=== PATIENT | female | born 1960 | race Caucasian/White ===

== ENCOUNTER 2021-07-06 12:01 | Emergency (ER) | payer MEDICARE, SELFPAY ==
[2021-07-06 12:06] VITALS: BP 111/71; PULSE 85; RESP 18; TEMP 36.9; O2SAT 99
--- NOTE | 2021-07-06 12:22 | ED.URI ---
HPI - URI/Sore Throat General Chief Complaint: Upper Respiratory Infection Stated Complaint: Chest Congestion/Sore Throat Time Seen by Provider: 07/06/21 12:28 Source: patient, RN notes reviewed and old records reviewed Mode of arrival: ambulatory Limitations: no limitations History of Present Illness HPI Narrative: 61-year-old female who presents to [facility] with complaints of burning cough with sore throat and some shortness of breath for the past 2.5 weeks. Patient states that she had COVID test 2.5 weeks ago that was negative and her PCP ordered a Z-Pack which she completed but doesn't feel it resolved her symptoms. Patient reports that she took another COVID test 2 days ago that was also negative. Patient reports that cough is worse at night and she is not resting, coughing all night and is tired. Patient denies any fevers but states some chills.She states that she feels her equilibrium is off. Patient reports that she does have Albuterol inhaler at home but has not used. Patient has long history of tobacco use reports that she is smoking around 5 cigarettes daily. Related Data Home Medications Medication Instructions Recorded Confirmed Calcium 600 with Vitamin D3 07/06/21 alprazolam 07/06/21 atorvastatin 07/06/21 escitalopram oxalate mg 07/06/21 levothyroxine 07/06/21 quetiapine 07/06/21 quetiapine [Seroquel] 25 mg PO HS 07/06/21 07/06/21 Allergies Allergy/AdvReac Type Severity Reaction Status Date / Time No Known Allergies Allergy Unverified 09/27/14 10:41 Review of Systems Review of Systems: CONSTITUTIONAL: Denies fever, states some chills, no sweats. EYES: Denies visual changes, redness, or discharge. ENT: Denies rhinorrhea, congestion, some sore throat, no otalgia. CARDIOVASCULAR: Reports some chest tightness with cough,no palpitations, or edema. RESPIRATORY: Positive cough some dyspnea with cough GASTROINTESTINAL: Denies abdominal pain, nausea, vomiting, or diarrhea. GENITOURINARY: Denies dysuria or hematuria. SKIN: Denies rash or itching. MUSCULOSKELETAL: Denies back pain, joint pain,reports is achy NEUROLOGIC: Denies headache, numbness, or weakness. PSYCHIATRIC: Positive history of anxiety or depression. All systems reviewed & are unremarkable except as noted in HPI and below PMFSH Past Medical History Medical History Anxiety and depression Arthritis Cervical stenosis of spine Elevated cholesterol GERD (gastroesophageal reflux disease) Hypothyroidism Osteoporosis Surgical History Surgical History History of right knee joint replacement Previous section Social History Social History (Updated 07/07/21 @ 09:14 by Katelin Ortiz NP) Smoking packs per day: 1 Smoking cigarettes per day: 20.0 Years smoked: 35 Smoking pack-years: 35.00 Smoking status: Current every day smoker Tobacco type: cigarettes Additional smoking assessment comments: states down to 5 cigarettes daily Alcohol intake: former Alcohol use details: recovered alcoholic Substance use type: does not use Living arrangements: with family Gender identity (if verbalized by the patient): Female Comments At time of signature, agree with nursing past medical, surgical, social and family history. There is no relevant family history pertinent to the presenting complaint Exam Narrative: GENERAL: Well-appearing, well-nourished, and in no acute distress. HEAD: Normocephalic, atraumatic. EYES: PERRLA and EOMI. ENT: Nares minimal redness with clear rhinorrhea no epistaxis. Mucous membranes moist.TM's normal with good light reflex, throat with some redness no lesions exudates or tonsil swelling, post nasal drainage noted. NECK: Supple. no lymphadenopathy CHEST: Clear to auscultation. No respiratory distress.no wheezing or tachypnea, frequent cough especially stated at night SAO2 99% on ro
== END 2021-07-06 13:06 | disposition home or self-care (01) ==
PROVIDERS: Emergency Provider Registered Nurse
DX: J06.9 Acute upper respiratory infection, unspecified (principal); R05.9 Cough, unspecified; F17.210 Nicotine dependence, cigarettes, uncomplicated; M19.90 Unspecified osteoarthritis, unspecified site; E78.00 Pure hypercholesterolemia, unspecified; K21.9 Gastro-esophageal reflux disease without esophagitis; E03.9 Hypothyroidism, unspecified; M81.0 Age-related osteoporosis without current pathological fracture; Z96.651 Presence of right artificial knee joint
CPT/HCPCS: 99203; G0463